=== PATIENT | female | born 1970 | race African-American/Black ===

== ENCOUNTER → 2018-01-28 | Outpatient (CLI) | payer OTHER ==
[~2018-01-28] MED LIST: OMEG100037; VITA100T15 PO
[2018-01-28 07:21] LABS: AUTOMATED NEUTROPHIL # 3.5 TH/MM3 (1.8-7.7); BASOPHIL # 0.1 TH/MM3 (0-0.2); BASOPHIL % 0.7 % (0.0-2.0); EOSINOPHIL # 0.3 TH/MM3 (0-0.4); EOSINOPHIL % 4.5 % (0.0-4.0); HEMATOCRIT 34.2 % (35.0-46.0); LYMPH % 37.3 % (9.0-44.0); LYMPHOCYTE # 2.8 TH/MM3 (1.0-4.8); MEAN CELL VOLUME 77.9 FL (80.0-100.0); MEAN CORPUSCULAR HGB CONC 32.1 % (32.0-36.0); MEAN PLATELET VOLUME 7.2 FL (7.0-11.0); MONO % 10.2 % (0.0-8.0); MONOCYTE # 0.8 TH/MM3 (0-0.9); NEUT % 47.3 % (16.0-70.0); PLATELET COUNT 371 TH/MM3 (150-450); RED BLOOD COUNT 4.39 MIL/MM3 (4.00-5.30); RED CELL DISTRIBUTION WIDTH 18.4 % (11.6-17.2); WHITE BLOOD COUNT 7.4 TH/MM3 (4.0-11.0)
[2018-01-28 07:47] LABS: ALBUMIN 4.1 GM/DL (3.4-5.0); ALT (GPT) 26 U/L (10-53); AST (GOT) 30 U/L (15-37); BLOOD UREA NITROGEN 12 MG/DL (7-18); CALCIUM 9.3 MG/DL (8.5-10.1); CHLORIDE 103 MEQ/L (98-107); CHOLESTEROL 233 MG/DL (120-200); CREATININE 0.75 MG/DL (0.50-1.00); GLOMERULAR FILTRATION RATE 99 ML/MIN (>89); GLUCOSE,FASTING 83 MG/DL (74-99); SODIUM (NA) 138 MEQ/L (136-145); TRIGLYCERIDES 67 MG/DL (42-150)
[2018-01-28 08:13] LABS: ALKALINE PHOSPHATASE 79 U/L (45-117); CHOLESTEROL/ HDL RATIO 3.16 RATIO; FERRITIN 8 NG/ML (8-252); HDL CHOLESTEROL 73.7 MG/DL (40.0-60.0); IRON (FE) 19 MCG/DL (50-170); LDL CHOLESTEROL 146 MG/DL (0-99); TOTAL BILIRUBIN ADULT 0.3 MG/DL (0.2-1.0); TOTAL IRON BINDING CAPACITY 627 MCG/DL (250-450); TOTAL PROTEIN 8.3 GM/DL (6.4-8.2)
[2018-01-28 08:20] LABS: FOLATE GREATER THAN 20.0 NG/ML (3.1-17.5)
[2018-02-01 13:34] LABS: METHYLMALONIC ACID 0.13 nmol/mL (<=0.40)
== END ==
LOC: CLAB 06:46
PROVIDERS: ATTEND Family Medicine
DX: Z98.84 Bariatric surgery status (principal); Z13.29 Encounter for screening for other suspected endocrine disorder
CPT/HCPCS: 36415; 80053; 80061; 82306; 82607; 82728; 82746; 83090; 83540; 83550; 83921; 83970; 84425; 85025